=== PATIENT | male | born 1980 | race African-American/Black ===

== ENCOUNTER 2019-12-23 09:34 | Emergency (ER) | payer SELFPAY ==
[~2019-12-23] VITALS: Ht 193 cm; Wt 131.5 kg
[2019-12-23 10:14] VITALS: BP 139/89
[2019-12-23] MEDS ORDERED: ACETAMINOPHEN 325MG TABLET PO ONE (10:15)
== END 2019-12-23 11:52 | disposition left against medical advice (07) ==
LOC: ER 09:34
DX: S39.82XA Other specified injuries of lower back, initial encounter (principal); X58.XXXA Exposure to other specified factors, initial encounter; Y93.89 Activity, other specified; Y92.018 Other place in single-family (private) house as the place of occurrence of the external cause
CPT/HCPCS: 72100; 99283